=== PATIENT | male | born 1955 | race Hispanic/Latino ===

== ENCOUNTER → 2023-10-04 06:26 | Day surgery (SDC) | payer MEDICARE, OTHER, SELFPAY | LOC: GI 06:26 | PROVIDERS: ATTENDING PHYSICIAN Internal Medicine | DX: Z12.11 Encounter for screening for malignant neoplasm of colon (principal); R19.5 Other fecal abnormalities; K64.8 Other hemorrhoids; K57.30 Diverticulosis of large intestine without perforation or abscess without bleeding; K62.1 Rectal polyp; D12.2 Benign neoplasm of ascending colon | CPT/HCPCS: 45390; 45380; 88305 ==

== ENCOUNTER → 2024-06-05 06:14 | Day surgery (SDC) | payer MEDICARE, OTHER, SELFPAY | LOC: GI 06:14 | PROVIDERS: ATTENDING PHYSICIAN Internal Medicine | DX: Z12.11 Encounter for screening for malignant neoplasm of colon (principal); K57.30 Diverticulosis of large intestine without perforation or abscess without bleeding; D12.2 Benign neoplasm of ascending colon; D12.3 Benign neoplasm of transverse colon; D12.5 Benign neoplasm of sigmoid colon; Z86.0109 Personal history of other colon polyps | CPT/HCPCS: 45385; 45381; 45380; 88305 ==

== ENCOUNTER 2024-12-09 06:32 | Day surgery (SDC) | payer MEDICARE, OTHER, SELFPAY ==
[2024-12-09 09:20] VITALS: BMI 23.7
[2024-12-09 09:23] VITALS: BP 158/84; BMI 23.7
[2024-12-09 11:01] VITALS: BP 104/82
[2024-12-09 11:15] VITALS: BP 115/80
[2024-12-09 11:30] VITALS: BP 126/80
== END 2024-12-09 11:40 | disposition home or self-care (01) ==
LOC: SDS 06:32
PROVIDERS: ATTENDING PHYSICIAN Internal Medicine Gastroenterology
DX: D12.0 Benign neoplasm of cecum (principal); D12.2 Benign neoplasm of ascending colon; K64.0 First degree hemorrhoids; Z98.890 Other specified postprocedural states
CPT/HCPCS: 45390; 45385; 88305